=== PATIENT | male | born 1985 | race Two or more races ===

== ENCOUNTER 2022-06-14 21:36 | Emergency (ER) | payer MEDICAID, OTHER ==
[~2022-06-14] VITALS: Ht 170.2 cm; Wt 97.0 kg
[2022-06-14 22:48] LABS: Basophils # (auto) 0 10 ^3/uL (0-0.2); Basophils % (auto) 0.3 % (0.0-2.0); Eosinophils # (auto) 0.6 10 ^3/uL (0-0.8); Eosinophils % (auto) 5.5 % (0.0-7.0); Hematocrit 47.2 % (41.0-53.0); Hemoglobin 16.3 g/dL (13.5-17.5); Lymphocytes # (auto) 2.9 10 ^3/uL (0.4-5.4); Lymphocytes % (auto) 27.7 % (10.0-50.0); Mean Corpuscular Hemoglobin 33.5 pg (28.0-32.0); Mean Corpuscular Hgb Conc. 34.5 g/dL (32.0-36.0); Mean Corpuscular Volume 97.3 fL (80.0-100.0); Monocytes # (auto) 0.9 10 ^3/uL (0-1.3); Monocytes % (auto) 8.7 % (0.0-12.0); Neutrophils % (auto) 57.8 % (37.0-80.0); Nucleated Red Blood Cells % 0.1 %; Red Blood Cells 4.86 10^6/uL (4.5-5.90); Red Cell Distribution Width 13.8 % (11.8-14.3); White Blood Cell 10.5 10^3/uL (4.4-10.8)
[2022-06-14 22:57] LABS: Albumin 3.9 g/dL (3.4-5.0); Calcium 9.2 mg/dL (8.5-10.1); Potassium 3.5 mmol/L (3.5-5.1)
[2022-06-14 23:02] LABS: BUN/Creatinine Ratio 11.8 (10.0-20.0); Bilirubin, Total 0.4 mg/dL (0.2-1.0); Total Protein 7.3 g/dL (6.4-8.2)
[2022-06-15] MEDS ORDERED: DICY10CA PO (01:55)
[2022-06-15 02:58] VITALS: BP 154/98
== END 2022-06-15 03:05 | disposition home or self-care (01) ==
LOC: EDSEX 21:36 → ER 21:36
DX: K29.70 Gastritis, unspecified, without bleeding (principal); F17.210 Nicotine dependence, cigarettes, uncomplicated; F12.10 Cannabis abuse, uncomplicated; I10 Essential (primary) hypertension
CPT/HCPCS: 36415; 74176; 80053; 80320; 83690; 85025

== ENCOUNTER 2023-12-19 19:20 | Emergency (ER) | payer MEDICAID ==
[~2023-12-19] VITALS: Ht 170.2 cm; Wt 170.0 kg
[2023-12-19 19:20] VITALS: BP 167/98; PULSE 106; RESP 18; O2SAT 98
--- NOTE | 2023-12-19 22:12 | DVH ---
CLINICAL INDICATION: fall/pain of the right hip TECHNIQUE: XY R HIP COMPLETE XRAY Comparison: None FINDINGS/IMPRESSION: There is no evidence of acute fracture or dislocation. Intramedullary nail and interlocking screw fixation of the right femur without periprosthetic fractur e or lucency and traversing a chronic mid right femur fracture. Intramedullary nail and dynamic hip screw in the left femur. No periprosthetic fracture or lucency in the visualized components of the hardware. The visualized joint space is well maintained. The alignment is anatomical. There is no radiopaque foreign body.
--- NOTE | 2023-12-19 22:22 | ED.PDOC ---
Back pain HPI Chief Complaint: Lower Extremity Time Seen by MD: 20:06 Reviewed Notes: Nurses Notes, Medications, Allergies Allergies: Coded Allergies: NO KNOWN ALLERGIES (Unverified , 06/14/22) Information Source: Patient Mode of Arrival: Ambulatory Past Medical History PAST MEDICAL HISTORY: HTN Surgical History: Denies all surgeries Family History Family History: Reviewed,noncontributory to illness Social History Smoker: Cigarettes, Less Than 1 Pack/Day Alcohol: Denies ETOH Use Drugs: Marijuana Lives In: Home X-Ray, Labs, Meds, VS Vital Signs Date Time Temp Pulse Resp B/P (MAP) Pulse Ox O2 Delivery O2 Flow Rate FiO2 12/19/23 19:20 98.8 106 18 167/98 (121) 98 Departure 1 Departure Time of Disposition: 22:21 Impression: Primary Impression: Right upper quadrant pain Disposition: 01 HOME / SELF CARE / HOMELESS Condition: Stable Discharged With: MINI Martinez Dec 19, 2023 22:22
== END 2023-12-19 22:41 | disposition home or self-care (01) ==
LOC: ER 19:20 → EDBD 19:20 → ER 22:41
DX: R10.11 Right upper quadrant pain (principal); M25.551 Pain in right hip; I10 Essential (primary) hypertension; F17.210 Nicotine dependence, cigarettes, uncomplicated
CPT/HCPCS: 73502

== ENCOUNTER 2024-09-22 04:25 | Emergency (ER) | payer MEDICAID ==
[~2024-09-22] VITALS: Ht 172.7 cm; Wt 95.5 kg
--- NOTE | 2024-09-22 04:44 | ED.PDOC ---
HPI Comments 39-YEAR-OLD MALE PRESENTS TO THE ER C/O LACERATION TO THE RIGHT FOREARM, BELIEVES THERE MAY BE GLASS IN THE WOUND.PATIENT DOES NOT WISH TO DISCLOSE WHAT HAPPENED. HAS AN INCIDENT REPORT FROM [facility]. DENIES NUMBNESS, WEAKNESS, OR ANY OTHER KNOWN INJURY. PT ASLO STATES GIRLFRIEND RECENTLY BEING TX FOR BED BUGS, REQUESTING TX. DENIES ANY LESIONS OR RASH AT THIS TIME. Chief Complaint: Laceration Time Seen by MD: 04:32 Reviewed Notes: Nurses Notes, Medications, Allergies Allergies: Coded Allergies: NO KNOWN ALLERGIES (Unverified , 06/14/22) Home Meds Active Scripts Permethrin (Elimite) 5 % Cre, 1 APPLIC TOP ONCE for 1 Day, #60 GRAMS FOLLOW DOSE PACK INSTRUCTIONS Prov:MINI NEUMANN [employer]ACTITIONER 09/22/24 Information Source: Patient Mode of Arrival: Ambulatory Complexity: Intermediate Laceration Length (cm): 3 Past Medical History PAST MEDICAL HISTORY: HTN Surgical History: Denies all surgeries Family History Family History: Reviewed,noncontributory to illness Social History Smoker: Cigarettes, Less Than 1 Pack/Day Alcohol: Denies ETOH Use Drugs: Marijuana Lives In: Home All Other Systems: Reviewed and Negative (SEE HPI ) Physical Exam General Appearance: No Apparent Distress, Normal HEENT: Pharynx Normal Neck: Full Range of Motion, Normal Inspection Respiratory: Lungs Clear, No Respiratory Distress, Normal Breath Sounds Cardiovascular: No Murmur, Normal Peripheral Pulses, Regular Rate/Rhythm Breast Exam: Deferred Gastrointestinal: No Organomegaly, Non Tender, Soft Genitalia: Deferred Pelvic: Deferred Rectal: Deferred Extremities: Normal capillary refill, Normal range of motion Musculoskeletal : Apperance: Normal Neurologic: Alert, No Motor Deficits, Normal Affect, Normal Mood, No Sensory Deficits Cerebellar Function: Normal Reflexes: Normal Skin: Dry, Lacerations (FULL THICKNESS LACERATION TO LEFT POSTERIOR FOREARM NO NOTED FB. BLEEDING CONTROLLED ), Normal Color, Warm Lymphatic: No Adenopathy Was a procedure done? Was a procedure done?: Yes Sedation Sedation?: No Informed consent obtained: Yes Laceration Repair : Location RIGHT POSTERIOR FOREARM Length 3 Anesthetic: Lidocaine, With epi Laceration Repair Prep: Saline, by Irrigation Laceration Repair Wound Comple: epidermis/dermis repair Laceration Repair: Number of sutures (7), Simple, Non-adherent gauze, Gauze Informed consent obtained: Yes Risks, benefits, and alternati: Yes Notes PT TOLERATED WELL WITH MINIMAL BLEEDING Differential diagnosis Generic Laceration: Fracture, Neurovascular Injury, Tendon Injury, Laceration X-Ray, Labs, Meds, VS Vital Signs Date Time Temp Pulse Resp B/P (MAP) Pulse Ox O2 Delivery O2 Flow Rate FiO2 09/22/24 04:28 98.5 129 18 164/116 96 98.5 X-Ray, Labs, Meds, VS Comment SEE PROCEDURE NOTE. PT TO F/U IN 5-7 DAYS FOR SUTURE REMOVAL. ER RETURN PRECAUTIONS GIVEN. TAKE MEDICATION PRESCRIBED S/E DISCUSSED. AGREES W/ DC PLAN. Time of 1ST Reevaluation: 04:42 Reevaluation 1ST: Unchanged Time of 2ND Reevaluation: 05:39 Reevaluation 2ND: Improved Patient Education/Counseling: Diagnosis, Treatment, Prognosis, Need For Follow Up Family Education/Counseling: No Family Present Departure 1 Departure Time of Disposition: 05:27 Impression: Primary Impression: Laceration Additional Impression: Infestation by bed bug Disposition: 01 HOME / SELF CARE / HOMELESS Condition: Stable e-Prescriptions Permethrin (Elimite) 5 % Cre 1 APPLIC TOP ONCE for 1 Day, #60 GRAMS FOLLOW DOSE PACK INSTRUCTIONS Prov: MINI NEUMANN 09/22/24 Discharged With: Self Critical Care Note Critical Care Time?: No Stability Stability form required: MINI Awan Sep 22, 2024 04:44
[2024-09-22] MEDS ORDERED: PER60TP TOP (05:30)
[2024-09-22 06:20] VITALS: BP 152/86; PULSE 102; RESP 18; TEMP 98.2; O2SAT 98
[2024-09-22] MEDS ORDERED: CEPH500C PO (06:31)
== END 2024-09-22 06:24 | disposition home or self-care (01) ==
LOC: ER 04:25
DX: S51.811A Laceration without foreign body of right forearm, initial encounter (principal); B88.8 Other specified infestations; I10 Essential (primary) hypertension; F17.210 Nicotine dependence, cigarettes, uncomplicated; F12.90 Cannabis use, unspecified, uncomplicated; Z79.899 Other long term (current) drug therapy; X58.XXXA Exposure to other specified factors, initial encounter; Y93.89 Activity, other specified; Y92.89 Other specified places as the place of occurrence of the external cause; Y99.8 Other external cause status
CPT/HCPCS: 12002